=== PATIENT | female | born 1965 | race African-American/Black ===

== ENCOUNTER 2025-04-13 22:13 | Emergency (ER) | payer MEDICAID ==
[~2025-04-13] VITALS: Ht 167.6 cm; Wt 49.0 kg
[2025-04-13 22:20] VITALS: TEMP 36.8; O2SAT 100
[2025-04-13] MEDS: CLONAZEPAM 1MG TABLET PO ONE (23:32)
[2025-04-13 23:55] VITALS: BP 141/98; PULSE 80; RESP 17; O2SAT 100
== END 2025-04-13 23:58 | disposition home or self-care (01) ==
LOC: ER 22:13
DX: F41.9 Anxiety disorder, unspecified (principal); Z79.899 Other long term (current) drug therapy
CPT/HCPCS: 99283